=== PATIENT | male | born 1960 | race Caucasian/White ===

== ENCOUNTER 2019-09-27 18:32 | Outpatient (CLI) | payer SELFPAY | END 2019-09-27 18:33 | disposition short-term general hospital (02) | LOC: EMS 18:32 | PROVIDERS: ATTEND Surgery | DX: S49.92XA Unspecified injury of left shoulder and upper arm, initial encounter (principal); S89.92XD Unspecified injury of left lower leg, subsequent encounter; V23.4XXD Motorcycle driver injured in collision with car, pick-up truck or van in traffic accident, subsequent encounter; Y92.413 State road as the place of occurrence of the external cause | CPT/HCPCS: A0425; A0427 ==

== ENCOUNTER 2019-10-23 09:30 | Outpatient (CLI) | payer MEDICAID, OTHER | END 2019-10-23 23:59 | disposition home or self-care (01) | LOC: LAB.R 09:30 | PROVIDERS: ATTEND Family Medicine | DX: S72.42 Fracture of lateral condyle of femur (principal) | CPT/HCPCS: 87070; 87205 ==

== ENCOUNTER 2020-04-07 12:00 | Outpatient (CLI) | payer MEDICAID ==
[2020-04-07 14:38] LABS: BASOPHILS % (AUTO) 0.4 %; EOSINOPHILS # (AUTO) 0.2 10^3/uL (0.0-0.7); EOSINOPHILS % (AUTO) 2.4 %; HGB - HEMOGLOBIN 9.5 g/dL (14.0-18.0); LYMPHOCYTES # (AUTO) 1.5 10^3/uL (1.5-3.5); LYMPHOCYTES % (AUTO) 19.9 %; MEAN CORPUSCULAR HEMOGLOBIN 27.5 pg (27.0-31.0); MEAN CORPUSCULAR HGB CONC 31.1 g/dL (32.0-36.0); MEAN CORPUSCULAR VOLUME 88.4 fL (80.0-94.0); MEAN PLATELET VOLUME 9.3 fL (7.4-11.4); MONOCYTES # (AUTO) 0.5 10^3/uL (0.0-1.0); MONOCYTES % (AUTO) 6.8 %; NEUTROPHILS # (AUTO) 5.2 10^3/uL (1.5-6.6); NEUTROPHILS % (AUTO) 70.1 %; PLT - PLATELET COUNT 493 10^3/uL (130-450); RED BLOOD COUNT 3.45 10^6/uL (4.70-6.10); RED CELL DISTRIBUTION WIDTH 13.7 % (12.0-15.0); WHITE BLOOD COUNT 7.4 x10^3/uL (4.8-10.8)
[2020-04-07 15:04] LABS: CALCIUM 9.4 mg/dL (8.5-10.3); CREATININE 0.9 mg/dL (0.6-1.2); CRP - C-REACTIVE PROTEIN 4.7 mg/dL (0-1.0)
== END 2020-04-07 23:59 | disposition home or self-care (01) ==
LOC: LAB.R 12:00
PROVIDERS: ATTEND Family Medicine
DX: T84.621A Infection and inflammatory reaction due to internal fixation device of left femur, initial encounter (principal)
CPT/HCPCS: 80048; 85025; 85651; 86140

== ENCOUNTER 2020-04-14 08:00 | Outpatient (CLI) | payer MEDICAID ==
[2020-04-14 15:38] LABS: BASOPHILS % (AUTO) 0.3 %; EOSINOPHILS # (AUTO) 0.2 10^3/uL (0.0-0.7); EOSINOPHILS % (AUTO) 2.5 %; HGB - HEMOGLOBIN 9.7 g/dL (14.0-18.0); LYMPHOCYTES # (AUTO) 1.4 10^3/uL (1.5-3.5); LYMPHOCYTES % (AUTO) 22.7 %; MEAN CORPUSCULAR HEMOGLOBIN 27.9 pg (27.0-31.0); MEAN CORPUSCULAR HGB CONC 32.3 g/dL (32.0-36.0); MEAN CORPUSCULAR VOLUME 86.2 fL (80.0-94.0); MONOCYTES # (AUTO) 0.3 10^3/uL (0.0-1.0); MONOCYTES % (AUTO) 5.7 %; NEUTROPHILS # (AUTO) 4.1 10^3/uL (1.5-6.6); NEUTROPHILS % (AUTO) 68.5 %; PLT - PLATELET COUNT 263 10^3/uL (130-450); RED BLOOD COUNT 3.48 10^6/uL (4.70-6.10); RED CELL DISTRIBUTION WIDTH 13.4 % (12.0-15.0)
[2020-04-14 16:12] LABS: CALCIUM 9.4 mg/dL (8.5-10.3); CREATININE 0.6 mg/dL (0.6-1.2); CRP - C-REACTIVE PROTEIN 2.1 mg/dL (0-1.0)
== END 2020-04-14 23:59 | disposition home or self-care (01) ==
LOC: LAB.R 08:00
PROVIDERS: ATTEND Family Medicine
DX: T84.621A Infection and inflammatory reaction due to internal fixation device of left femur, initial encounter (principal)
CPT/HCPCS: 80048; 85025; 85651; 86140

== ENCOUNTER 2020-04-17 11:00 | Outpatient (CLI) | payer MEDICAID | END 2020-04-17 23:59 | disposition home or self-care (01) | LOC: LAB.R 11:00 → MERGE 11:00 → LAB.R 23:59 | PROVIDERS: ATTEND Family Medicine | DX: T84.621A Infection and inflammatory reaction due to internal fixation device of left femur, initial encounter (principal) | CPT/HCPCS: 87070; 87205 ==

== ENCOUNTER 2020-04-21 08:00 | Outpatient (CLI) | payer MEDICAID ==
[2020-04-21 18:56] LABS: CALCIUM 9.1 mg/dL (8.5-10.3); CREATININE 0.8 mg/dL (0.6-1.2); CRP - C-REACTIVE PROTEIN 4.5 mg/dL (0-1.0)
[2020-04-21 19:00] LABS: BASOPHILS % (AUTO) 0.3 %; EOSINOPHILS # (AUTO) 0.2 10^3/uL (0.0-0.7); EOSINOPHILS % (AUTO) 3.6 %; HGB - HEMOGLOBIN 9.9 g/dL (14.0-18.0); LYMPHOCYTES # (AUTO) 1.1 10^3/uL (1.5-3.5); LYMPHOCYTES % (AUTO) 18.3 %; MEAN CORPUSCULAR HEMOGLOBIN 27.7 pg (27.0-31.0); MEAN CORPUSCULAR HGB CONC 32.1 g/dL (32.0-36.0); MEAN PLATELET VOLUME 10.8 fL (7.4-11.4); MONOCYTES # (AUTO) 0.5 10^3/uL (0.0-1.0); MONOCYTES % (AUTO) 8.8 %; NEUTROPHILS % (AUTO) 68.7 %; PLT - PLATELET COUNT 210 10^3/uL (130-450); RED BLOOD COUNT 3.58 10^6/uL (4.70-6.10); WHITE BLOOD COUNT 5.8 x10^3/uL (4.8-10.8)
== END 2020-04-21 23:59 | disposition home or self-care (01) ==
LOC: LAB.R 08:00
PROVIDERS: ATTEND Family Medicine
DX: T84.621A Infection and inflammatory reaction due to internal fixation device of left femur, initial encounter (principal)
CPT/HCPCS: 80048; 85025; 85651; 86140

== ENCOUNTER 2020-04-28 11:45 | Outpatient (CLI) | payer MEDICAID ==
[2020-04-28 15:15] LABS: BASOPHILS % (AUTO) 0.4 %; EOSINOPHILS # (AUTO) 0.2 10^3/uL (0.0-0.7); EOSINOPHILS % (AUTO) 4.2 %; HGB - HEMOGLOBIN 10.2 g/dL (14.0-18.0); LYMPHOCYTES # (AUTO) 1.1 10^3/uL (1.5-3.5); LYMPHOCYTES % (AUTO) 22.4 %; MEAN CORPUSCULAR HEMOGLOBIN 27.3 pg (27.0-31.0); MEAN CORPUSCULAR HGB CONC 31.5 g/dL (32.0-36.0); MEAN CORPUSCULAR VOLUME 86.9 fL (80.0-94.0); MEAN PLATELET VOLUME 10.1 fL (7.4-11.4); MONOCYTES # (AUTO) 0.5 10^3/uL (0.0-1.0); MONOCYTES % (AUTO) 9.6 %; NEUTROPHILS # (AUTO) 3.2 10^3/uL (1.5-6.6); NEUTROPHILS % (AUTO) 63.2 %; PLT - PLATELET COUNT 257 10^3/uL (130-450); RED BLOOD COUNT 3.73 10^6/uL (4.70-6.10)
[2020-04-28 15:38] LABS: CALCIUM 9.2 mg/dL (8.5-10.3); CREATININE 0.7 mg/dL (0.6-1.2); CRP - C-REACTIVE PROTEIN 3.7 mg/dL (0-1.0)
== END 2020-04-28 23:59 | disposition home or self-care (01) ==
LOC: LAB.R 11:45
PROVIDERS: ATTEND Family Medicine
DX: T84.621A Infection and inflammatory reaction due to internal fixation device of left femur, initial encounter (principal)
CPT/HCPCS: 80048; 85025; 85651; 86140

== ENCOUNTER 2020-05-05 08:00 | Outpatient (CLI) | payer MEDICAID ==
[2020-05-05 15:38] LABS: BASOPHILS % (AUTO) 0.6 %; EOSINOPHILS # (AUTO) 0.2 10^3/uL (0.0-0.7); EOSINOPHILS % (AUTO) 3.6 %; LYMPHOCYTES # (AUTO) 1.1 10^3/uL (1.5-3.5); LYMPHOCYTES % (AUTO) 21.5 %; MEAN CORPUSCULAR HEMOGLOBIN 26.9 pg (27.0-31.0); MEAN CORPUSCULAR HGB CONC 31.2 g/dL (32.0-36.0); MEAN CORPUSCULAR VOLUME 86.3 fL (80.0-94.0); MEAN PLATELET VOLUME 10.1 fL (7.4-11.4); MONOCYTES # (AUTO) 0.4 10^3/uL (0.0-1.0); MONOCYTES % (AUTO) 7.6 %; NEUTROPHILS # (AUTO) 3.5 10^3/uL (1.5-6.6); NEUTROPHILS % (AUTO) 66.3 %; PLT - PLATELET COUNT 255 10^3/uL (130-450); RED BLOOD COUNT 3.72 10^6/uL (4.70-6.10); WHITE BLOOD COUNT 5.3 x10^3/uL (4.8-10.8)
[2020-05-05 16:07] LABS: CALCIUM 9.3 mg/dL (8.5-10.3); CREATININE 0.7 mg/dL (0.6-1.2); CRP - C-REACTIVE PROTEIN 2.4 mg/dL (0-1.0)
== END 2020-05-05 23:59 | disposition home or self-care (01) ==
LOC: LAB.R 08:00
PROVIDERS: ATTEND Family Medicine
DX: T84.621A Infection and inflammatory reaction due to internal fixation device of left femur, initial encounter (principal)
CPT/HCPCS: 80048; 85025; 85651; 86140

== ENCOUNTER 2020-05-06 13:03 | Outpatient (CLI) | payer MEDICAID ==
--- NOTE | 2020-05-06 14:29 | XRAY Report ---
PROCEDURE: Chest 1 View X-Ray INDICATIONS: Post-operative wound infection TECHNIQUE: One view of the chest was acquired. COMPARISON: None FINDINGS: Surgical changes and devices: None. Lungs and pleura: No pleural effusions or pneumothorax. Lungs are clear. Mediastinum: Mediastinal contours appear normal. Heart size is normal. Bones and chest wall: No suspicious bony lesions. Overlying soft tissues appear unremarkable. IMPRESSION: No acute finding. Reviewed by: Niles Tapia MD on 05/06/2020 1:27 PM [facility] Approved by: Niles Tapia MD on 05/06/2020 1:27 PM [facility] Station ID: [id number]
== END 2020-05-06 13:04 | disposition home or self-care (01) ==
LOC: DI 13:03
PROVIDERS: ATTEND Internal Medicine
DX: T81.49XA Infection following a procedure, other surgical site, initial encounter (principal); T82.524A Displacement of infusion catheter, initial encounter

== ENCOUNTER 2020-05-12 08:00 | Outpatient (CLI) | payer MEDICAID ==
[2020-05-12 15:50] LABS: CALCIUM 9.5 mg/dL (8.5-10.3); CREATININE 0.6 mg/dL (0.6-1.2)
[2020-05-12 16:21] LABS: BASOPHILS % (AUTO) 0.6 %; EOSINOPHILS # (AUTO) 0.2 10^3/uL (0.0-0.7); EOSINOPHILS % (AUTO) 2.9 %; HGB - HEMOGLOBIN 10.4 g/dL (14.0-18.0); LYMPHOCYTES # (AUTO) 1.5 10^3/uL (1.5-3.5); LYMPHOCYTES % (AUTO) 28.9 %; MEAN CORPUSCULAR HEMOGLOBIN 27.1 pg (27.0-31.0); MEAN CORPUSCULAR HGB CONC 32.1 g/dL (32.0-36.0); MEAN CORPUSCULAR VOLUME 84.4 fL (80.0-94.0); MEAN PLATELET VOLUME 9.8 fL (7.4-11.4); MONOCYTES # (AUTO) 0.3 10^3/uL (0.0-1.0); MONOCYTES % (AUTO) 6.2 %; NEUTROPHILS # (AUTO) 3.2 10^3/uL (1.5-6.6); NEUTROPHILS % (AUTO) 61.2 %; PLT - PLATELET COUNT 229 10^3/uL (130-450); RED BLOOD COUNT 3.84 10^6/uL (4.70-6.10); RED CELL DISTRIBUTION WIDTH 14.3 % (12.0-15.0); WHITE BLOOD COUNT 5.2 x10^3/uL (4.8-10.8)
[2020-05-12 16:46] LABS: CRP - C-REACTIVE PROTEIN 2.8 mg/dL (0-1.0)
== END 2020-05-12 23:59 | disposition home or self-care (01) ==
LOC: LAB.R 08:00
PROVIDERS: ATTEND Family Medicine
DX: T84.621A Infection and inflammatory reaction due to internal fixation device of left femur, initial encounter (principal)
CPT/HCPCS: 80048; 85025; 85651; 86140

== ENCOUNTER 2020-05-19 08:00 | Outpatient (CLI) | payer MEDICAID ==
[2020-05-19 15:03] LABS: BASOPHILS % (AUTO) 0.5 %; EOSINOPHILS # (AUTO) 0.2 10^3/uL (0.0-0.7); EOSINOPHILS % (AUTO) 2.1 %; HGB - HEMOGLOBIN 11.6 g/dL (14.0-18.0); LYMPHOCYTES # (AUTO) 1.4 10^3/uL (1.5-3.5); LYMPHOCYTES % (AUTO) 18.7 %; MEAN CORPUSCULAR HEMOGLOBIN 27.4 pg (27.0-31.0); MEAN CORPUSCULAR HGB CONC 31.7 g/dL (32.0-36.0); MEAN CORPUSCULAR VOLUME 86.3 fL (80.0-94.0); MEAN PLATELET VOLUME 9.6 fL (7.4-11.4); MONOCYTES # (AUTO) 0.4 10^3/uL (0.0-1.0); MONOCYTES % (AUTO) 5.2 %; NEUTROPHILS # (AUTO) 5.5 10^3/uL (1.5-6.6); NEUTROPHILS % (AUTO) 73.2 %; PLT - PLATELET COUNT 200 10^3/uL (130-450); RED BLOOD COUNT 4.24 10^6/uL (4.70-6.10); RED CELL DISTRIBUTION WIDTH 14.6 % (12.0-15.0); WHITE BLOOD COUNT 7.5 x10^3/uL (4.8-10.8)
[2020-05-19 15:18] LABS: ALBUMIN 4.1 g/dL (3.2-5.5); ALKALINE PHOSPHATASE 125 IU/L (42-121); ALT ALANINE AMINOTRANSFERASE < 10 IU/L (10-60); AST ASPARTATE AMINOTRANSFERASE 27 IU/L (10-42); BILIRUBIN,TOTAL 0.4 mg/dL (0.2-1.0); BUN - BLOOD UREA NITROGEN 9 mg/dL (6-20); CALCIUM 9.3 mg/dL (8.5-10.3); CARBON DIOXIDE - CO2 28 mmol/L (21-32); CHLORIDE 97 mmol/L (101-111); CREATININE 0.6 mg/dL (0.6-1.2); GLUCOSE 120 mg/dL (70-100); SODIUM 137 mmol/L (135-145); TOTAL PROTEIN 8.2 g/dL (6.7-8.2)
[2020-05-19 15:38] LABS: CRP - C-REACTIVE PROTEIN 3.2 mg/dL (0-1.0)
== END 2020-05-19 23:59 ==
LOC: LAB.R 08:00
PROVIDERS: ATTEND Family Medicine
DX: T84.621A Infection and inflammatory reaction due to internal fixation device of left femur, initial encounter (principal)
CPT/HCPCS: 36415; 80053; 85025; 85651; 86140

== ENCOUNTER 2020-05-26 11:40 | Outpatient (CLI) | payer MEDICAID ==
[2020-05-26 14:34] LABS: BASOPHILS % (AUTO) 0.4 %; EOSINOPHILS # (AUTO) 0.2 10^3/uL (0.0-0.7); EOSINOPHILS % (AUTO) 2.4 %; HGB - HEMOGLOBIN 11.8 g/dL (14.0-18.0); LYMPHOCYTES # (AUTO) 1.4 10^3/uL (1.5-3.5); LYMPHOCYTES % (AUTO) 19.6 %; MEAN CORPUSCULAR HEMOGLOBIN 27.2 pg (27.0-31.0); MEAN CORPUSCULAR HGB CONC 32.2 g/dL (32.0-36.0); MEAN CORPUSCULAR VOLUME 84.3 fL (80.0-94.0); MEAN PLATELET VOLUME 9.5 fL (7.4-11.4); MONOCYTES # (AUTO) 0.4 10^3/uL (0.0-1.0); MONOCYTES % (AUTO) 4.9 %; NEUTROPHILS # (AUTO) 5.2 10^3/uL (1.5-6.6); NEUTROPHILS % (AUTO) 72.3 %; PLT - PLATELET COUNT 212 10^3/uL (130-450); RED BLOOD COUNT 4.34 10^6/uL (4.70-6.10); RED CELL DISTRIBUTION WIDTH 14.4 % (12.0-15.0); WHITE BLOOD COUNT 7.2 x10^3/uL (4.8-10.8)
[2020-05-26 15:55] LABS: CALCIUM 9.5 mg/dL (8.5-10.3); CREATININE 0.7 mg/dL (0.6-1.2); CRP - C-REACTIVE PROTEIN 1.6 mg/dL (0-1.0)
== END 2020-05-26 23:59 | disposition home or self-care (01) ==
LOC: LAB.R 11:40
PROVIDERS: ATTEND Internal Medicine
DX: T84.621A Infection and inflammatory reaction due to internal fixation device of left femur, initial encounter (principal)
CPT/HCPCS: 36415; 80048; 85025; 85651; 86140

== ENCOUNTER 2020-07-14 08:06 | Outpatient (CLI) | payer MEDICAID | END 2020-07-14 08:07 | disposition home or self-care (01) | LOC: LAB.S 08:06 | PROVIDERS: ATTEND Internal Medicine | DX: T84.7XXS Infection and inflammatory reaction due to other internal orthopedic prosthetic devices, implants and grafts, sequela (principal) | CPT/HCPCS: 36415; 85651; 86140 ==

== ENCOUNTER 2020-10-05 11:36 | Outpatient (CLI) | payer MEDICAID | END 2020-10-05 11:37 | disposition home or self-care (01) | LOC: LAB.S 11:36 | PROVIDERS: ATTEND Internal Medicine | DX: T84.7XXS Infection and inflammatory reaction due to other internal orthopedic prosthetic devices, implants and grafts, sequela (principal); T81.49XA Infection following a procedure, other surgical site, initial encounter | CPT/HCPCS: 36415; 85651; 86140 ==

== ENCOUNTER 2020-10-27 13:57 | Outpatient (CLI) | payer MEDICAID ==
--- NOTE | 2020-10-27 16:43 | XRAY Report ---
PROCEDURE: Foot 3 View BILAT INDICATIONS: BILATERAL FOOT TECHNIQUE: 6 total views of the bilateral feet were acquired. COMPARISON: None FINDINGS: Bones: No fractures or dislocations. No suspicious bony lesions. Prior trauma of the distal left t ibia, with transverse fixation screws partially visualized. Mild secondary degenerative osteoarthriti s at the tibiotalar joint on the left. Mild to moderate osteoarthritis is seen at the left first MTP joint and mild such degeneration is seen at the same joint on the right. Soft tissues: No tibiotalar joint effusion. Achilles tendon appears normal. IMPRESSION: Posttraumatic change and degenerative osteoarthritis greater on the left than the right in this patie nt with prior medullary kay fracture fixation partially visualized at the knee low left tibia. Reviewed by: Carlos Milner MD on 10/27/2020 4:42 PM PDT Approved by: Carlos Milner MD on 10/27/2020 4:42 PM PDT Station ID: [id number]
--- NOTE | 2020-10-28 09:09 | XRAY Report ---
PROCEDURE: Knee Standing RT INDICATIONS: RIGHT KNEE PAIN TECHNIQUE: 3 views of the right knee, COMPARISON: None. FINDINGS: Bones: No acute fractures or dislocations. No suspicious bony lesions. Joint spaces appear normal with weightbearing. Soft tissues: No knee joint effusions. No suspicious soft tissue calcification. IMPRESSION: There is a slight degree of medial compartment joint space narrowing consistent with very mild degene rative osteoarthritic change. No effusion or loose body found. Reviewed by: Carlos Milner MD on 10/27/2020 5:04 PM PDT Approved by: Carlos Milner MD on 10/27/2020 5:04 PM PDT Station ID: [id number]
== END 2020-10-27 13:58 | disposition home or self-care (01) ==
LOC: DI.S 13:57
PROVIDERS: ATTEND Anesthesiology
DX: M25.561 Pain in right knee (principal); M19.072 Primary osteoarthritis, left ankle and foot; M19.071 Primary osteoarthritis, right ankle and foot